=== PATIENT | male | born 1975 | race Caucasian/White ===

== ENCOUNTER 2025-04-21 21:07 | Emergency (ER) | payer BC ==
[~2025-04-21] VITALS: Ht 180.3 cm; Wt 83.9 kg
[2025-04-21] MEDS ORDERED: ADENOSINE 6MG/2ML 3 ML ONE (21:11)
[2025-04-21] MEDS: ADENOSINE 6 MG/2 ML VIAL IV ONE ×2 (21:13→21:14)
[2025-04-21] MEDS: ADENOSINE 6 MG/2 ML VIAL IV STA (21:20)
[2025-04-21 21:26] LABS: BASOPHILS % 0.3 % (0.0-1.0); EOSINOPHILS % 0.9 % (0.0-6.0); LYMPHOCYTES % 31.4 % (18.0-39.1); MONOCYTES % 8.1 % (4.4-11.3); NEUTROPHILS % 58.7 % (38.7-80.0); RED CELL DISTRIBUTION WIDTH 12.0 % (11.7-14.4)
[2025-04-21 21:45] LABS: EST GLOMERULAR FILTRATION RATE 59.0 ML/MIN (>=60)
[2025-04-21 21:49] VITALS: BP 125/89; PULSE 96
[2025-04-21] MEDS: METOPROLOL TARTRATE INJ 1 MG/ML VIAL IV STA (21:49)
[2025-04-21] MEDS: DIGOXIN INJ 0.25 MG/ML 2 ML AMP IV STA (21:49)
[2025-04-21 22:07] VITALS: TEMP 97.2
[2025-04-21 23:23] VITALS: PULSE 72; RESP 16; O2SAT 100
== END 2025-04-21 23:33 | disposition other institution (70) ==
LOC: ER 21:13
DX: R00.2 Palpitations (principal); I47.10 Supraventricular tachycardia, unspecified; R94.31 Abnormal electrocardiogram [ECG] [EKG]
CPT/HCPCS: 36415; 71045; 80053; 82550; 83690; 83880; 84484; 85025; 93005; 99284; J0153; J1160